=== PATIENT | female | born 1995 | race American Indian/Alaskan Native ===

== ENCOUNTER 2017-10-15 06:09 | Emergency (ER) | payer SELFPAY ==
--- NOTE | 2017-10-15 06:11 | EDM.PDOC ---
ED HPI GENERAL MEDICAL PROBLEM - General Stated Complaint: RIGHT EAR PAIN Time Seen by Provider: 10/15/17 06:25 Source of Information: Reports: Patient History Limitations: Reports: No Limitations - History of Present Illness INITIAL COMMENTS - FREE TEXT/NARRATIVE: HISTORY AND PHYSICAL: History of present illness: 22-year-old female presenting emergency department with chief complaint of right ear pain 2 hours. Patient states that she woke up this morning and was having some severe right ear pain approximately 2 hours ago. She denies any loss of hearing or trauma to that ear. She does have a history of ear infections but only as a child none as an adult. She denies any recent illness, nausea, vomiting, diarrhea, sore throat, or dental cavities. Otherwise she is feeling fine. She has not had fever. She currently denies any chest pain, palpitations, shortness breath, syncopal episodes, or focal neurologic deficits. On exam left external canal is clear and tympanic membrane shows no erythema or bulging. Right external canal is erythema most and patient has pain on pulling of tragus. Review of systems: As per history of present illness and below otherwise all systems reviewed and negative. Past medical history: As per history of present illness and as reviewed below otherwise noncontributory. Surgical history: As per history of present illness and as reviewed below otherwise noncontributory. Social history: No reported history of drug or alcohol abuse. Family history: As per history of present illness and as reviewed below otherwise noncontributory. Physical exam: HEENT: See H&P for your exam Atraumatic, normocephalic, pupils reactive, negative for conjunctival pallor or scleral icterus, mucous membranes moist, throat clear, neck supple, nontender, trachea midline. Lungs: Clear to auscultation, breath sounds equal bilaterally, chest nontender. Heart: S1S2, regular, negative for clicks, rubs, or JVD. Abdomen: Soft, nondistended, nontender. Negative for masses or hepatosplenomegaly. Negative for costovertebral tenderness. Pelvis: Stable nontender. Genitourinary: Deferred. Rectal: Deferred. Extremities: Atraumatic, negative for cords or calf pain. Neurovascular unremarkable. Neuro: Awake, alert, oriented. Cranial nerves II through XII unremarkable. Cerebellum unremarkable. Motor and sensory unremarkable throughout. Exam nonfocal. Diagnostics: [] Therapeutics: [] Impression: Otitis externa Plan: On examination patient has otitis externa of the right ear. She was given a prescription for Cortisporin otic drops to be used 1-2 drops 4 times a day for 7 days. She was instructed to follow-up with her primary care provider and return to emergency department if she has any new or worsening symptoms. - Related Data Allergies Allergy/AdvReac Type Severity Reaction Status Date / Time No Known Allergies Allergy Verified 10/15/17 06:12 Home Meds: Home Meds . [No Known Home Meds] 10/15/17 [History] ED ROS GENERAL - Review of Systems Review Of Systems: See Below ED EXAM, GENERAL - Physical Exam Exam: See Below Course - Vital Signs Last Recorded V/S: Last Vital Signs Temp 97.8 F 10/15/17 06:09 Pulse 78 10/15/17 06:09 Resp 16 10/15/17 06:09 BP 122/80 10/15/17 06:09 Pulse Ox 97 10/15/17 06:09 Departure - Departure Time of Disposition: 06:34 Disposition: Home, Self-Care 01 Condition: Good Clinical Impression: Otitis externa Qualifiers: Otitis externa type: other infective Chronicity: acute Laterality: right Qualified Code(s): H60.391 - Other infective otitis externa, right ear - Discharge Information Additional Instructions: My general discharge The following information is given to patients seen in the emergency department who are being discharged to home. This information is to outline your options for follow-up care. We provide all patients seen in our emergency department with a follow-up referral. The need for follow-up, as well as the timing and circumstances, are variable depending upon the specifics of your emergency department visit. If you don't have a primary care physician on staff, we will provide you with a referral. We always advise you to contact your personal physician following an emergency department visit to inform them of the circumstance of the visit and for follow-up with them and/or the need for any referrals to a consulting specialist. The emergency department will also refer you to a specialist when appropriate. This referral assures that you have the opportunity for follow-up care with a specialist. All of these measure are taken in an effort to provide you with optimal care, which includes your follow-up. Under all circumstances we always encourage you to contact your private physician who remains a resource for coordinating your care. When calling for follow-up care, please make the office aware that this follow-up is from your recent emergency room visit. If for any reason you are refused follow-up, please contact the [facility] Emergency Department at and asked to speak to the emergency department charge nurse. [facility] [address] [place] [id number] [facility] [address] [place] [id number] [facility] [address] [place] [id number] Use drops in ear 1-24 times a day for 7 days. Follow-up with primary care physician. Numbers have been listed above. Burroughs returns from anything new or worsening symptoms.
== END 2017-10-15 06:40 | disposition home or self-care (01) ==
LOC: MW.ED 06:09
DX: H60.91 Unspecified otitis externa, right ear (principal)
CPT/HCPCS: 99282

== ENCOUNTER 2018-01-09 15:32 | Emergency (ER) | payer SELFPAY ==
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
== END 2018-01-09 16:38 | disposition home or self-care (01) ==
LOC: MW.ED 15:32
DX: R68.84 Jaw pain (principal)
CPT/HCPCS: 99283

== ENCOUNTER 2018-10-25 12:59 | Emergency (ER) | payer SELFPAY ==
[2018-10-25] MEDS ORDERED: Ketorolac 60 MG/2 ML SDV IM ONE (13:25)
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
== END 2018-10-25 14:40 | disposition home or self-care (01) ==
LOC: MW.ED 12:59
DX: M26.602 Left temporomandibular joint disorder, unspecified (principal)
CPT/HCPCS: 70100; 96372; 99284; J1885; J2360

== ENCOUNTER 2018-11-29 18:32 | Emergency (ER) | payer SELFPAY ==
[2018-11-29] MEDS ORDERED: Ondansetron 4 MG Tab.DIS PO ONE (18:40)
--- NOTE | 2018-11-29 18:59 | EDM.PDOC ---
ED HPI GENERAL MEDICAL PROBLEM - General Stated Complaint: FLU Time Seen by Provider: 11/29/18 18:37 - History of Present Illness INITIAL COMMENTS - FREE TEXT/NARRATIVE: HISTORY AND PHYSICAL: History of present illness: Patient's 23-year-old female with no significant past medical history presents with concern of possible food poisoning patient achieved some [place] food last night and had nausea and vomiting since is been no diarrhea no fever chills or other complaint she denies abdominal pain Review of systems: As per history of present illness and below otherwise all systems reviewed and negative. Past medical history: As per history of present illness and as reviewed below otherwise noncontributory. Surgical history: As per history of present illness and as reviewed below otherwise noncontributory. Social history: No reported history of drug or alcohol abuse. Family history: As per history of present illness and as reviewed below otherwise noncontributory. Physical exam: HEENT: Atraumatic, normocephalic, pupils reactive, negative for conjunctival pallor or scleral icterus, mucous membranes moist, throat clear, neck supple, nontender, trachea midline. Lungs: Clear to auscultation, breath sounds equal bilaterally, chest nontender. Heart: S1S2, regular, negative for clicks, rubs, or JVD. Abdomen: Soft, nondistended, nontender. Negative for masses or hepatosplenomegaly. Negative for costovertebral tenderness. Pelvis: Stable nontender. Genitourinary: Deferred. Rectal: Deferred. Extremities: Atraumatic, negative for cords or calf pain. Neurovascular unremarkable. Neuro: Awake, alert, oriented. Cranial nerves II through XII unremarkable. Cerebellum unremarkable. Motor and sensory unremarkable throughout. Exam nonfocal. Diagnostics: CBC CMP lipase hCG Therapeutics: Zofran 4 mg by mouth Impression: #1 vomiting Definitive disposition and diagnosis as appropriate pending reevaluation and review of above. - Related Data Allergies Allergy/AdvReac Type Severity Reaction Status Date / Time No Known Allergies Allergy Verified 11/29/18 18:47 Home Meds: Home Meds . 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 Musculoskeletal History: Reports: None Neurological History: Reports: None Psychiatric History: Reports: None Endocrine/Metabolic History: Reports: None Hematologic History: Reports: None Immunologic History: Reports: None Oncologic (Cancer) History: Reports: None Dermatologic History: Reports: None - Infectious Disease History Infectious Disease History: Reports: None - Past Surgical History Head Surgeries/Procedures: Reports: None Female Surgical History: Reports: None Social & Family History - Family History Family Medical History: Noncontributory - Tobacco Use Smoking Status *Q: Current Every Day Smoker Years of Tobacco use: 1 Packs/Tins Daily: 0.2 - Caffeine Use Caffeine Use: Reports: None - Recreational Drug Use Recreational Drug Use: No ED ROS GENERAL - Review of Systems Review Of Systems: ROS reveals no pertinent complaints other than HPI. ED EXAM, GENERAL - Physical Exam Exam: See Below (See dictation) Course - Vital Signs Last Recorded V/S: Last Vital Signs Temp 36.6 C 11/29/18 18:46 Pulse 94 11/29/18 18:46 Resp 18 11/29/18 18:46 BP 148/85 H 11/29/18 18:46 Pulse Ox 99 11/29/18 18:46 - Orders/Labs/Meds Orders: Active Orders 24 hr Category Date Time Status CBC WITH AUTO DIFF [HEME] Stat Lab 11/29/18 18:40 Ordered COMPREHENSIVE METABOLIC PN,CMP [CHEM] Stat Lab 11/29/18 18:40 Ordered HCG QUALITATIVE,SERUM [CHEM] Stat Lab 11/29/18 18:40 Ordered LIPASE [CHEM] Stat Lab 11/29/18 18:40 Ordered Meds: Medications Discontinued Medications Generic Name Dose Route Start Last Admin Trade Name Tonnyq PRN Reason Stop Dose Admin Ondansetron HCl 4 mg 11/29/18 18:40 Zofran Odt PO 11/29/18 18:41 ONETIME ONE Departure - Departure Time of Disposition: 18:58 Disposition: Home, Self-Care 01 Condition: Good Clinical Impression: Vomiting - Discharge Information Referrals: PCP,Unknown [Primary Care Provider] - Additional Instructions: The following information is given to patients seen in the emergency department who are being discharged to home. This information is to outline your options for follow-up care. We provide all patients seen in our emergency department with a follow-up referral. The need for follow-up, as well as the timing and circumstances, are variable depending upon the specifics of your emergency department visit. If you don't have a primary care physician on staff, we will provide you with a referral. We always advise you to contact your personal physician following an emergency department visit to inform them of the circumstance of the visit and for follow-up with them and/or the need for any referrals to a consulting specialist. The emergency department will also refer you to a specialist when appropriate. This referral assures that you have the opportunity for followup care with a specialist. All of these measure are taken in an effort to provide you with optimal care, which includes your followup. Under all circumstances we always encourage you to contact your private physician who remains a resource for coordinating your care. When calling for followup care, please make the office aware that this follow-up is from your recent emergency room visit. If for any reason you are refused follow-up, please contact the [facility] emergency department at and asked to speak to the emergency department charge nurse. Zofran as prescribed push fluids clear liquids as discussed return as needed as discussed - My Orders Last 24 Hours: My Active Orders 11/29/18 18:40 CBC WITH AUTO DIFF [HEME] Stat COMPREHENSIVE METABOLIC PN,CMP [CHEM] Stat HCG QUALITATIVE,SERUM [CHEM] Stat LIPASE [CHEM] Stat - Assessment/Plan Last 24 Hours: My Active Orders 11/29/18 18:40 CBC WITH AUTO DIFF [HEME] Stat COMPREHENSIVE METABOLIC PN,CMP [CHEM] Stat HCG QUALITATIVE,SERUM [CHEM] Stat LIPASE [CHEM] Stat
[2018-11-29 19:21] LABS: CHLORIDE,CL 106 mmol/L (98-107); SODIUM,NA 141 mmol/L (136-145)
== END 2018-11-29 20:22 | disposition home or self-care (01) ==
LOC: MW.ED 18:32
DX: R11.2 Nausea with vomiting, unspecified (principal)
CPT/HCPCS: 36415; 80053; 83690; 84703; 85025; 99284; A9270; 99283

== ENCOUNTER 2019-02-08 14:40 | Emergency (ER) | payer SELFPAY ==
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
== END 2019-02-08 18:52 | disposition home or self-care (01) ==
LOC: MW.ED 14:40
DX: S70.11XA Contusion of right thigh, initial encounter (principal); F17.200 Nicotine dependence, unspecified, uncomplicated; W55.32XA Struck by other hoof stock, initial encounter
CPT/HCPCS: 73552-26-LT; 73552-RT; 99282; 99283-25

== ENCOUNTER 2019-02-14 06:15 | Emergency (ER) | payer SELFPAY ==
[2019-02-14] MEDS ORDERED: Ketorolac 30 MG/ML SDV IVPUSH ONE (06:36)
[2019-02-14] MEDS ORDERED: Sodium Chloride 0.9% 2.5 ML Syringe FLUSH PRN (06:36)
[2019-02-14] MEDS ORDERED: Pantoprazole 40 MG Vial IVPUSH ONE (06:36)
[2019-02-14] MEDS ORDERED: Sodium Chloride 0.9% 10 ML Syringe FLUSH PRN (06:36)
[2019-02-14] MEDS ORDERED: Ondansetron 4 MG/2 ML SDV IVPUSH ONE (06:36)
[2019-02-14] MEDS ORDERED: Sodium Chloride 0.9% 1,000 ML IV ONE (06:36)
[2019-02-14] MEDS ORDERED: Sodium Chloride 0.9% 20 ML ONE (06:44)
--- NOTE | 2019-02-14 06:48 | EDM.PDOC ---
<Starla Bishop - Last Filed: 02/14/19 06:43> ED HPI GENERAL MEDICAL PROBLEM - General Chief Complaint: Abdominal Pain Stated Complaint: ABD PAIN Time Seen by Provider: 02/14/19 06:37 - History of Present Illness INITIAL COMMENTS - FREE TEXT/NARRATIVE: HISTORY AND PHYSICAL: History of present illness: The patient is a 23-year-old female with GI or abdominal surgical history who presents with onset of epigastric and lower chest pain that started about 3:30 this morning. Patient said she had a normal day yesterday and ate pizza at 6 PM and then had some liquids before bed and was sleeping comfortably when she woke up and felt this epigastric discomfort. She describes it as a deep burning pain that radiates to both upper quadrants and then around to her back but she has no specific flank pain or urinary complaints. She vomited 7 times none of which was black or bloody and she's had no diarrhea and says she had a normal bowel movement yesterday. She's had no fever chills upper respiratory tract symptoms no shortness of breath and no specific chest wall pain and points to her lower sternum and epigastric region as the site of the discomfort. It does not shoot to her back. The patient says she has no medical history and no cardiac or pulmonary issues and did not take any meds [id number] to help with this discomfort. She denies any history of food intolerance. Review of systems: As per history of present illness and below otherwise all systems reviewed and negative. Past medical history: As per history of present illness and as reviewed below otherwise noncontributory. Surgical history: As per history of present illness and as reviewed below otherwise noncontributory. Social history: No reported history of drug or alcohol abuse. Family history: As per history of present illness and as reviewed below otherwise noncontributory. Physical exam: General: Well-developed well-nourished very overweight female who is nontoxic and vital signs are noted by me. Moves easily in the ED without much distress. HEENT: Atraumatic, normocephalic, pupils reactive, negative for conjunctival pallor or scleral icterus, mucous membranes moist, throat clear, neck supple, nontender, trachea midline. Lungs: Clear to auscultation, breath sounds equal bilaterally, chest nontender. Heart: S1S2, regular rate and rhythm no overt murmurs Abdomen: Soft, nondistended, bowel sounds are hypoactive and there is no tympany on percussion. There is moderate tenderness in the epigastric region and just to the left of the midline but no specific right upper quadrant tenderness and no lower abdominal tenderness. There is no rebound or guarding. Negative for masses or hepatosplenomegaly. Negative for costovertebral tenderness. Pelvis: Stable nontender. Genitourinary: Deferred. Rectal: Deferred. Extremities: Atraumatic, negative for cords or calf pain. Neurovascular unremarkable. Neuro: Awake, alert, oriented. Cranial nerves II through XII unremarkable. Cerebellum unremarkable. Motor and sensory unremarkable throughout. Exam nonfocal. Diagnostics: EKG CBC CMP amylase lipase UA UCG Therapeutics: IV fluids Protonix Toradol Zofran 0650: Case is endorsed to Dr. Moe to follow-up the diagnostics as ordered and to reevaluate the patient and to determine if she needs imaging pending the testing results and her response to the interventions. Impression: Epigastric abdominal pain with vomiting Definitive disposition and diagnosis as appropriate pending reevaluation and review of above. epigastric area Pain Score (Numeric/FACES): 8 - Related Data Allergies Allergy/AdvReac Type Severity Reaction Status Date / Time No Known Allergies Allergy Verified 02/14/19 06:26 Home Meds: Home Meds . [No Known Home Meds] 11/29/18 [History] Past Medical History - Past Health History Medical/Surgical History: Denies Medical/Surgical History HEENT History: Reports: None Cardiovascular History: Reports: None Respiratory History: Reports: None Gastrointestinal History: Reports: None Genitourinary History: Reports: None INCOMING FREIGHT CLERK History: Reports: None Musculoskeletal History: Reports: None Neurological History: Reports: None Psychiatric History: Reports: None Endocrine/Metabolic History: Reports: None Insulin Pump Model and Ecotherapist: None Hematologic History: Reports: None Immunologic History: Reports: None Oncologic (Cancer) History: Reports: None Dermatologic History: Reports: None - Infectious Disease History Infectious Disease History: Reports: None - Past Surgical History Head Surgeries/Procedures: Reports: None Female Surgical History: Reports: None Social & Family History - Family History Family Medical History: Noncontributory - Tobacco Use Smoking Status *Q: Never Smoker - Caffeine Use Caffeine Use: Reports: Coffee - Recreational Drug Use Recreational Drug Use: No ED ROS GENERAL - Review of Systems Review Of Systems: ROS reveals no pertinent complaints other than HPI. ED EXAM, GENERAL - Physical Exam Exam: See Below (See dictation) Course - Vital Signs Last Recorded V/S: Last Vital Signs Temp 97.5 F 02/14/19 06:26 Pulse 92 02/14/19 06:26 Resp 18 02/14/19 06:26 BP 135/74 02/14/19 06:26 Pulse Ox 99 02/14/19 06:26 - Orders/Labs/Meds Orders: Active Orders 24 hr Category Date Time Status EKG Documentation Completion [RC] STAT Care 02/14/19 06:35 Active Sodium Chloride 0.9% [Saline Flush] Med 02/14/19 06:36 Active 10 ml FLUSH ASDIRECTED PRN Sodium Chloride 0.9% [Saline Flush] Med 02/14/19 06:36 Active 2.5 ml FLUSH ASDIRECTED PRN Saline Lock Insert [OM.PC] Stat Oth 02/14/19 06:35 Ordered Medication Orders Sodium Chloride (Saline Flush) 10 ml FLUSH ASDIRECTED PRN PRN Reason: Keep Vein Open Sodium Chloride (Saline Flush) 2.5 ml FLUSH ASDIRECTED PRN PRN Reason: Keep Vein Open Labs: Laboratory Tests 02/14/19 02/14/19 02/14/19 Range/Units 06:25 06:25 06:40 WBC 10.38 (4.0-11.0) K/uL RBC 4.28 L (4.30-5.90) M/uL Hgb 13.9 (12.0-16.0) g/dL Hct 40.9 (36.0-46.0) % MCV 95.6 (80.0-98.0) fL MCH 32.5 H (27.0-32.0) pg MCHC 34.0 (31.0-37.0) g/dL RDW Std Deviation 41.6 (28.0-62.0) fl RDW Coeff of Salma 12 (11.0-15.0) % Plt Count 255 (150-400) K/uL MPV 10.30 (7.40-12.00) fL Neut % (Auto) 59.3 (48.0-80.0) % Lymph % (Auto) 30.0 (16.0-40.0) % [place] % (Auto) 9.0 (0.0-15.0) % Eos % (Auto) 1.4 (0.0-7.0) % Baso % (Auto) 0.3 (0.0-1.5) % Neut # (Auto) 6.2 H (1.4-5.7) K/uL Lymph # (Auto) 3.1 H (0.6-2.4) K/uL [place] # (Auto) 0.9 H (0.0-0.8) K/uL Eos # (Auto) 0.2 (0.0-0.7) K/uL Baso # (Auto) 0.0 (0.0-0.1) K/uL Nucleated RBC % 0.0 /100WBC Nucleated RBCs # 0 K/uL Sodium (136-145) mmol/L Potassium (3.5-5.1) mmol/L Chloride (98-107) mmol/L Carbon Dioxide (21.0-32.0) mmol/L BUN (7.0-18.0) mg/dL Creatinine (0.6-1.0) mg/dL Est Cr Clr Drug Dosing mL/min Estimated GFR (MDRD) ml/min Glucose (74-106) mg/dL Calcium (8.5-10.1) mg/dL Total Bilirubin (0.2-1.0) mg/dL AST (15-37) IU/L ALT (14-63) IU/L Alkaline Phosphatase (46-116) U/L Total Protein (6.4-8.2) g/dL Albumin (3.4-5.0) g/dL Globulin (2.6-4.0) g/dL Albumin/Globulin Ratio (0.9-1.6) Amylase (25-115) U/L Lipase (73-393) U/L Urine Color YELLOW Urine Appearance SLT CLOUDY Urine pH 6.5 (5.0-8.0) Ur Specific [place] 1.025 (1.001-1.035) Urine Protein NEGATIVE (NEGATIVE) mg/dL Urine Glucose (UA) NEGATIVE (NEGATIVE) mg/dL Urine Ketones TRACE H (NEGATIVE) mg/dL Urine Occult Blood NEGATIVE (NEGATIVE) Urine Nitrite NEGATIVE (NEGATIVE) Urine Bilirubin NEGATIVE (NEGATIVE) Urine Urobilinogen 0.2 (<2.0) EU/dL Ur Leukocyte Esterase NEGATIVE (NEGATIVE) Urine HCG, Qual NEGATIVE (NEGATIVE) 02/14/19 Range/Units 06:40 WBC (4.0-11.0) K/uL RBC (4.30-5.90) M/uL Hgb (12.0-16.0) g/dL Hct (36.0-46.0) % MCV (80.0-98.0) fL MCH (27.0-32.0) pg MCHC (31.0-37.0) g/dL RDW Std Deviation (28.0-62.0) fl RDW Coeff of Salma (11.0-15.0) % Plt Count (150-400) K/uL MPV (7.40-12.00) fL Neut % (Auto) (48.0-80.0) % Lymph % (Auto) (16.0-40.0) % [place] % (Auto) (0.0-15.0) % Eos % (Auto) (0.0-7.0) % Baso % (Auto) (0.0-1.5) % Neut # (Auto) (1.4-5.7) K/uL Lymph # (Auto) (0.6-2.4) K/uL [place] # (Auto) (0.0-0.8) K/uL Eos # (Auto) (0.0-0.7) K/uL Baso # (Auto) (0.0-0.1) K/uL Nucleated RBC % /100WBC Nucleated RBCs # K/uL Sodium 142 (136-145) mmol/L Potassium 4.1 (3.5-5.1) mmol/L Chloride 106 (98-107) mmol/L Carbon Dioxide 25.2 (21.0-32.0) mmol/L BUN 13 (7.0-18.0) mg/dL Creatinine 0.9 (0.6-1.0) mg/dL Est Cr Clr Drug Dosing 95.35 mL/min Estimated GFR (MDRD) > 60.0 ml/min Glucose 107 H (74-106) mg/dL Calcium 8.8 (8.5-10.1) mg/dL Total Bilirubin 0.3 (0.2-1.0) mg/dL AST 21 (15-37) IU/L ALT 45 (14-63) IU/L Alkaline Phosphatase 96 (46-116) U/L Total Protein 7.5 (6.4-8.2) g/dL Albumin 3.7 (3.4-5.0) g/dL Globulin 3.8 (2.6-4.0) g/dL Albumin/Globulin Ratio 1.0 (0.9-1.6) Amylase 34 (25-115) U/L Lipase 124 (73-393) U/L Urine Color Urine Appearance Urine pH (5.0-8.0) Ur Specific [place] (1.001-1.035) Urine Protein (NEGATIVE) mg/dL Urine Glucose (UA) (NEGATIVE) mg/dL Urine Ketones (NEGATIVE) mg/dL Urine Occult Blood (NEGATIVE) Urine Nitrite (NEGATIVE) Urine Bilirubin (NEGATIVE) Urine Urobilinogen (<2.0) EU/dL Ur Leukocyte Esterase (NEGATIVE) Urine HCG, Qual (NEGATIVE) Meds: Medications Generic Name Dose Route Start Last Admin Trade Name Homero PRN Reason Stop Dose Admin Sodium Chloride 10 ml 02/14/19 06:36 Saline Flush FLUSH ASDIRECTED PRN Keep Vein Open Sodium Chloride 2.5 ml 02/14/19 06:36 Saline Flush FLUSH ASDIRECTED PRN Keep Vein Open Discontinued Medications Generic Name Dose Route Start Last Admin Trade Name Homero PRN Reason Stop Dose Admin Sodium Chloride 1,000 mls @ 999 mls/hr 02/14/19 06:36 02/14/19 06:50 Normal Saline IV 02/14/19 07:36 999 mls/hr STAT ONE Administration Sodium Chloride Confirm 02/14/19 06:44 02/14/19 06:48 Normal Saline Administered 02/14/19 06:45 20 mls/hr Dose Administration 20 mls @ as directed .ROUTE .STK-MED ONE Ketorolac Tromethamine 30 mg 02/14/19 06:36 02/14/19 06:49 Toradol IVPUSH 02/14/19 06:37 30 mg ONETIME ONE Administration Ondansetron HCl 4 mg 02/14/19 06:36 02/14/19 06:49 Zofran IVPUSH 02/14/19 06:37 4 mg ONETIME ONE Administration Pantoprazole Sodium 80 mg 02/14/19 06:36 02/14/19 06:48 Protonix Iv IVPUSH 02/14/19 06:37 80 mg .BOLUS ONE Administration Departure - Departure Disposition: Home, Self-Care 01 Condition: Good Clinical Impression: Abdominal pain Qualifiers: Abdominal location: epigastric Qualified Code(s): R10.13 - Epigastric pain Vomiting Qualifiers: Vomiting type: unspecified Vomiting Intractability: unspecified Nausea presence : with nausea Qualified Code(s): R11.2 - Nausea with vomiting, unspecified - Discharge Information Instructions: Abdominal Pain, Adult, [id number] Referrals: PCP,None [Primary Care Provider] - Forms: ED Department Discharge Additional Instructions: The following information is given to patients seen in the emergency department who are being discharged to home. This information is to outline your options for follow-up care. We provide all patients seen in our emergency department with a follow-up referral. The need for follow-up, as well as the timing and circumstances, are variable depending upon the specifics of your emergency department visit. If you don't have a primary care physician on staff, we will provide you with a referral. We always advise you to contact your personal physician following an emergency department visit to inform them of the circumstance of the visit and for follow-up with them and/or the need for any referrals to a consulting specialist. The emergency department will also refer you to a specialist when appropriate. This referral assures that you have the opportunity for follow-up care with a specialist. All of these measure are taken in an effort to provide you with optimal care, which includes your follow-up. Under all circumstances we always encourage you to contact your private physician who remains a resource for coordinating your care. When calling for follow-up care, please make the office aware that this follow-up is from your recent emergency room visit. If for any reason you are refused follow-up, please contact the [facility] Emergency Department at and asked to speak to the emergency department charge nurse. Take Pridariosec as directed, follow up with your primary care physician, return to ER if symptoms worsen or change. [facility] [address] [place] [id number] <Lexi Moe - Last Filed: 02/14/19 07:39> ED HPI GENERAL MEDICAL PROBLEM - History of Present Illness INITIAL COMMENTS - FREE TEXT/NARRATIVE: Patient was signed out to me by Dr. Bishop to check labs and reassess the patient. Patient's lab work was all normal had a benign abdominal exam she is being discharged I recommended taking Prilosec twice a day for 2 weeks and follow-up with her primary care doctor. She is to return if any bloody emesis or black stools, worsening pain or any other concerning symptoms occur. Departure - Departure Time of Disposition: 07:39 - Discharge Information *PRESCRIPTION DRUG MONITORING PROGRAM REVIEWED*: No *COPY OF PRESCRIPTION DRUG MONITORING REPORT IN PATIENT MAYDA: No
[2019-02-14 07:03] LABS: BLOOD UREA NITROGEN,BUN 13 mg/dL (7.0-18.0); CARBON DIOXIDE,CO2 25.2 mmol/L (21.0-32.0); CHLORIDE,CL 106 mmol/L (98-107); GLUCOSE RANDOM 107 mg/dL (74-106); LIPASE 124 U/L (73-393); POTASSIUM,K 4.1 mmol/L (3.5-5.1); SODIUM,NA 142 mmol/L (136-145)
== END 2019-02-14 08:30 | disposition home or self-care (01) ==
LOC: MW.ED 06:15
DX: R10.13 Epigastric pain (principal); R11.2 Nausea with vomiting, unspecified; R07.9 Chest pain, unspecified
CPT/HCPCS: 36415; 80053; 81003; 81025; 82150; 83690; 85025; 93005; 96361; 96374; 96375; 99284; C9113; J1885; J2405; J7040

== ENCOUNTER 2019-03-01 03:39 | Emergency (ER) | payer SELFPAY ==
[2019-03-01] MEDS ORDERED: Ondansetron 4 MG/2 ML SDV IVPUSH ONE (03:59)
[2019-03-01] MEDS ORDERED: Sodium Chloride 0.9% 1,000 ML IV ONE (03:59)
[2019-03-01] MEDS ORDERED: Pantoprazole 40 MG Vial IV ONE (04:24)
[2019-03-01] MEDS ORDERED: Sodium Chloride 0.9% 20 ML SDV FLUSH ONE (04:26)
--- NOTE | 2019-03-01 04:27 | EDM.PDOC ---
ED HPI GENERAL MEDICAL PROBLEM - General Chief Complaint: Gastrointestinal Problem Stated Complaint: VOMITING Time Seen by Provider: 03/01/19 04:22 - History of Present Illness INITIAL COMMENTS - FREE TEXT/NARRATIVE: HISTORY AND PHYSICAL: History of present illness: Patient's 23-year-old female with a history of gastroesophageal reflux disease was seen in the ER several weeks prior for same and return with upper abdominal pain she states she's had vomiting and diarrhea also she denies fever chills Review of systems: As per history of present illness and below otherwise all systems reviewed and negative. Past medical history: As per history of present illness and as reviewed below otherwise noncontributory. Surgical history: As per history of present illness and as reviewed below otherwise noncontributory. Social history: No reported history of drug or alcohol abuse. Family history: As per history of present illness and as reviewed below otherwise noncontributory. Physical exam: HEENT: Atraumatic, normocephalic, pupils reactive, negative for conjunctival pallor or scleral icterus, mucous membranes moist, throat clear, neck supple, nontender, trachea midline. Lungs: Clear to auscultation, breath sounds equal bilaterally, chest nontender. Heart: S1S2, regular, negative for clicks, rubs, or JVD. Abdomen: Soft, nondistended, nontender. Negative for masses or hepatosplenomegaly. Negative for costovertebral tenderness. Pelvis: Stable nontender. Genitourinary: Deferred. Rectal: Deferred. Extremities: Atraumatic, negative for cords or calf pain. Neurovascular unremarkable. Neuro: Awake, alert, oriented. Cranial nerves II through XII unremarkable. Cerebellum unremarkable. Motor and sensory unremarkable throughout. Exam nonfocal. Diagnostics: CBC CMP and lipase UA hCG Therapeutics: Saline 1 L bolus Impression: #1 history of gastroesophageal reflux disease #2 gastroenteritis Definitive disposition and diagnosis as appropriate pending reevaluation and review of above. abdomen Pain Score (Numeric/FACES): 10 - Related Data Allergies Allergy/AdvReac Type Severity Reaction Status Date / Time No Known Allergies Allergy Verified 03/01/19 03:56 Home Meds: Home Meds . [No Known Home Meds] 11/29/18 [History] Past Medical History - Past Health History Medical/Surgical History: Denies Medical/Surgical History HEENT History: Reports: None Cardiovascular History: Reports: None Respiratory History: Reports: None Gastrointestinal History: Reports: GERD Genitourinary History: Reports: None RETAIL AGENT History: Reports: None Musculoskeletal History: Reports: None Neurological History: Reports: None Psychiatric History: Reports: None Endocrine/Metabolic History: Reports: None Insulin Pump Model and Web Consultant: None Hematologic History: Reports: None Immunologic History: Reports: None Oncologic (Cancer) History: Reports: None Dermatologic History: Reports: None - Infectious Disease History Infectious Disease History: Reports: None - Past Surgical History Head Surgeries/Procedures: Reports: None GI Surgical History: Reports: None Female Surgical History: Reports: None Social & Family History - Family History Family Medical History: Noncontributory - Tobacco Use Smoking Status *Q: Never Smoker Second Hand Smoke Exposure: No - Caffeine Use Caffeine Use: Reports: Coffee - Recreational Drug Use Recreational Drug Use: No ED ROS GENERAL - Review of Systems Review Of Systems: ROS reveals no pertinent complaints other than HPI. ED EXAM, GENERAL - Physical Exam Exam: See Below (dictation) Course - Vital Signs Last Recorded V/S: Last Vital Signs Temp 35.5 C 03/01/19 03:42 Pulse 108 H 03/01/19 03:42 Resp 19 03/01/19 03:42 BP 191/130 H 03/01/19 03:42 Pulse Ox 100 03/01/19 03:42 - Orders/Labs/Meds Orders: Active Orders 24 hr Category Date Time Status Abdomen Series w Chest 1V [CR] Stat Exams 03/01/19 03:59 Ordered COMPREHENSIVE METABOLIC PN,CMP [CHEM] Stat Lab 03/01/19 04:04 Received LIPASE [CHEM] Stat Lab 03/01/19 04:04 Received Sodium Chloride 0.9% [Normal Saline] 1,000 ml Med 03/01/19 03:59 Active IV .Bolus Saline Lock Insert [OM.PC] Stat Oth 03/01/19 03:59 Ordered Medication Orders Sodium Chloride (Normal Saline) 1,000 mls @ 999 mls/hr IV .Bolus ONE Stop: 03/01/19 04:59 Last Admin: 03/01/19 04:10 Dose: 999 mls/hr Labs: Laboratory Tests 03/01/19 03/01/19 03/01/19 Range/Units 04:00 04:00 04:04 WBC 12.89 H (4.0-11.0) K/uL RBC 4.28 L (4.30-5.90) M/uL Hgb 14.2 (12.0-16.0) g/dL Hct 41.2 (36.0-46.0) % MCV 96.3 (80.0-98.0) fL MCH 33.2 H (27.0-32.0) pg MCHC 34.5 (31.0-37.0) g/dL RDW Std Deviation 41.9 (28.0-62.0) fl RDW Coeff of Salma 12 (11.0-15.0) % Plt Count 276 (150-400) K/uL MPV 10.00 (7.40-12.00) fL Nucleated RBC % 0.0 /100WBC Nucleated RBCs # 0 K/uL Urine Color YELLOW Urine Appearance CLEAR Urine pH 6.5 (5.0-8.0) Ur Specific [place] >= 1.030 (1.001-1.035) Urine Protein NEGATIVE (NEGATIVE) mg/dL Urine Glucose (UA) NEGATIVE (NEGATIVE) mg/dL Urine Ketones TRACE H (NEGATIVE) mg/dL Urine Occult Blood NEGATIVE (NEGATIVE) Urine Nitrite NEGATIVE (NEGATIVE) Urine Bilirubin NEGATIVE (NEGATIVE) Urine Urobilinogen 0.2 (<2.0) EU/dL Ur Leukocyte Esterase NEGATIVE (NEGATIVE) Urine HCG, Qual NEGATIVE (NEGATIVE) Meds: Medications Generic Name Dose Route Start Last Admin Trade Name Freq PRN Reason Stop Dose Admin Sodium Chloride 1,000 mls @ 999 mls/hr 03/01/19 03:59 03/01/19 04:10 Normal Saline IV 03/01/19 04:59 999 mls/hr .Bolus ONE Administration Discontinued Medications Generic Name Dose Route Start Last Admin Trade Name Freq PRN Reason Stop Dose Admin Ondansetron HCl 4 mg 03/01/19 03:59 03/01/19 04:10 Zofran IVPUSH 03/01/19 04:00 4 mg ONETIME ONE Administration Departure - Departure Time of Disposition: 04:24 Disposition: Home, Self-Care 01 Condition: Good Clinical Impression: Gastroenteritis, History of gastroesophageal reflux (GERD) - Discharge Information Referrals: PCP,None [Primary Care Provider] - Additional Instructions: The following information is given to patients seen in the emergency department who are being discharged to home. This information is to outline your options for follow-up care. We provide all patients seen in our emergency department with a follow-up referral. The need for follow-up, as well as the timing and circumstances, are variable depending upon the specifics of your emergency department visit. If you don't have a primary care physician on staff, we will provide you with a referral. We always advise you to contact your personal physician following an emergency department visit to inform them of the circumstance of the visit and for follow-up with them and/or the need for any referrals to a consulting specialist. The emergency department will also refer you to a specialist when appropriate. This referral assures that you have the opportunity for followup care with a specialist. All of these measure are taken in an effort to provide you with optimal care, which includes your followup. Under all circumstances we always encourage you to contact your private physician who remains a resource for coordinating your care. When calling for followup care, please make the office aware that this follow-up is from your recent emergency room visit. If for any reason you are refused follow-up, please contact the [facility] emergency department at and asked to speak to the emergency department charge nurse. [facility] - General Surgery Professional Building [address] [place] [address], [address] [place] [address] [facility] [address] [place] [id number] Zofran as prescribed continue Protonix follow-up primary care and Gen. surgery as discussed return as needed as discussed - My Orders Last 24 Hours: My Active Orders 03/01/19 03:59 Abdomen Series w Chest 1V [CR] Stat Sodium Chloride 0.9% [Normal Saline] 1,000 ml IV .Bolus Saline Lock Insert [OM.PC] Stat 03/01/19 04:04 COMPREHENSIVE METABOLIC PN,CMP [CHEM] Stat LIPASE [CHEM] Stat - Assessment/Plan Last 24 Hours: My Active Orders 03/01/19 03:59 Abdomen Series w Chest 1V [CR] Stat Sodium Chloride 0.9% [Normal Saline] 1,000 ml IV .Bolus Saline Lock Insert [OM.PC] Stat 03/01/19 04:04 COMPREHENSIVE METABOLIC PN,CMP [CHEM] Stat LIPASE [CHEM] Stat
[2019-03-01 04:29] LABS: BLOOD UREA NITROGEN,BUN 13 mg/dL (7.0-18.0); CARBON DIOXIDE,CO2 27.6 mmol/L (21.0-32.0); CHLORIDE,CL 104 mmol/L (98-107); GLUCOSE RANDOM 110 mg/dL (74-106); LIPASE 142 U/L (73-393); POTASSIUM,K 3.4 mmol/L (3.5-5.1); SODIUM,NA 141 mmol/L (136-145)
--- NOTE | 2019-03-01 06:17 | CR ---
INDICATION: Abdominal pain TECHNIQUE: Chest and Abdominal radiograph 5 views COMPARISON: None FINDINGS: CHEST: Moderate degradation of image quality noted due to body habitus. Mediastinum: The mediastinum is normal in appearance. The heart silhouette is normal in size and morphology. Lung: Both lungs are unremarkable in appearance. No sign of pleural effusion seen. No pneumothorax is identified. ABDOMEN: Bowel: The supine gas pattern of the transverse colon is suggestive of thumbprinting and fold thickening. Soft tissue: No evidence of pneumoperitoneum present. No suspicious calcifications noted. Bone: Unremarkable for age. IMPRESSION: 1. The supine gas pattern of the transverse colon is suggestive of thumbprinting and fold thickening. Further evaluation with CT is recommended. Dictated by Jason Patricio MD @ 03/01/2019 6:15:42 AM Dictated by: Jason Patricio MD @ 03/01/2019 06:15:44 (Electronically Signed)
[2019-03-01] MEDS ORDERED: Iopamidol 755 Mg/ML 100 ML Bottle IVPUSH ONE (06:27)
--- NOTE | 2019-03-01 07:36 | CT ---
INDICATION: Abdominal pain. Abnormal x-ray to date. TECHNIQUE: Contrast and CT abdomen pelvis. 100 mL [id number]. Coronal and sagittal re-formatted images obtained. COMPARISON: X-rays 03/01/2019. Findings: Heart size is normal. No pericardial or pleural effusion. Minimal ground-glass atelectasis. Spleen pancreas adrenal glands. Liver is unremarkable. There may be some minimal gallbladder wall thickening or fluid. Normal caliber abdominal aorta. Symmetric enhancement of both kidneys without hydronephrosis. Normal appendix. The colon is incompletely distended however there is no obvious bowel wall thickening or inflammatory change seen. No obstruction. Urinary bladder is unremarkable. Bilateral ovarian cysts measuring up to 3.6 cm on the right. No suspicious bony lesions. Impression : 1. Colon is incompletely distended but no obvious bowel wall thickening or inflammatory change. No obstruction. 2. Possible mild gallbladder wall thickening or fluid. This could be correlated clinically. 3. Bilateral ovarian cysts measuring up to 3.6 cm on the right. Please note that all CT scans at this facility use dose modulation, iterative reconstruction, and/or weight-based dosing when appropriate to reduce radiation dose to as low as reasonably achievable. Dictated by Gaby Crawford MD @ Mar 01 2019 7:35AM Signed by Dr. Gaby Crawford @ Mar 01 2019 7:35AM
== END 2019-03-01 07:54 | disposition home or self-care (01) ==
LOC: MW.ED 03:39
DX: K52.9 Noninfective gastroenteritis and colitis, unspecified (principal); Z87.19 Personal history of other diseases of the digestive system
CPT/HCPCS: 36415; 74022; 74177; 80053; 81003; 81025; 83690; 85027; 96361; 96374; 96375; 99284; C9113; J2405; J7040; Q9967

== ENCOUNTER 2019-09-07 15:45 | Emergency (ER) | payer SELFPAY ==
[2019-09-07] MEDS ORDERED: Carbamide Peroxide 6.5% Otic Soln 15 ML Bottle EARRT ONE (15:55)
--- NOTE | 2019-09-07 16:10 | EDM.PDOC ---
ED HPI GENERAL MEDICAL PROBLEM - General Chief Complaint: ENT Problem Stated Complaint: PAIN AND PRESSURE IN R EAR Time Seen by Provider: 09/07/19 15:47 Source of Information: Reports: Patient History Limitations: Reports: No Limitations - History of Present Illness INITIAL COMMENTS - FREE TEXT/NARRATIVE: HISTORY AND PHYSICAL: History of present illness: Patient is a 23-year-old female who presents to the emergency room with complaints of right ear pain. Last evening she was cleaning her ears with a Q- tip and believes she shoved wax in her ear canal. Since then she has been having pain and muffled hearing. She has not had any drainage from the ear. Patient denies any systemic complaints. Review of systems: As per history of present illness and below otherwise all systems reviewed and negative. Past medical history: As per history of present illness and as reviewed below otherwise noncontributory. Surgical history: As per history of present illness and as reviewed below otherwise noncontributory. Social history: See social history for further information Family history: As per history of present illness and as reviewed below otherwise noncontributory. Physical exam: General: Well-developed and well-nourished 23-year-old female. Alert and oriented. Nontoxic-appearing and in no acute distress. HEENT: Atraumatic, normocephalic, pupils equal and reactive bilaterally, negative for conjunctival pallor or scleral icterus, mucous membranes moist, left TMs normal, TM is unable to be visualized due to cerumen impaction, throat clear, neck supple, nontender, trachea midline. No drooling or trismus noted. No meningeal signs. No hot potato voice noted. Lungs: Clear to auscultation, breath sounds equal bilaterally, chest nontender. Heart: S1S2, regular rate and rhythm without overt murmur Abdomen: Soft, nondistended, nontender. Skin: Intact, warm, dry. No lesions or rashes noted. Extremities: Atraumatic, moves all extremities per self without difficulty or deficits, negative for cords or calf pain. Neurovascular unremarkable. Neuro: Awake, alert, oriented. Cranial nerves II through XII unremarkable. Cerebellum unremarkable. Motor and sensory unremarkable throughout. Exam nonfocal. Notes: Debrox was used and sat for 15 minutes, was able to gently irrigate the ear for cerumen removal. She does have some redness behind the TM. Will give antibiotics. We discussed follow-up with ENT. Supportive care measures were reviewed and discussed. Voices understanding and is agreeable to plan of care. Denies any further questions or concerns at this time. Diagnostics: None Therapeutics: Debrox Prescription: Augmentin Impression: Right otitis media Cerumen impaction Plan: 1. Debrox 5-10 drops in the right ear twice daily; MAX of 4 x daily. To soften the ear wax. 2. Take the medication as prescribed. 3. Follow up with your primary care provider or ENT as discussed. Return to the ED as needed as discussed. Definitive disposition and diagnosis as appropriate pending reevaluation and review of above. 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: 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 Musculoskeletal History: Reports: None Neurological History: Reports: None Psychiatric History: Reports: None Endocrine/Metabolic History: Reports: None Insulin Pump Model and Warehouse Packaging Supervisor: None Hematologic History: Reports: None Immunologic History: Reports: None Oncologic (Cancer) History: Reports: None Dermatologic History: Reports: None - Infectious Disease History Infectious Disease History: Reports: None - Past Surgical History Head Surgeries/Procedures: Reports: None GI Surgical History: Reports: None Female Surgical History: Reports: None Social & Family History - Family History Family Medical History: Noncontributory - Caffeine Use Caffeine Use: Reports: Coffee ED ROS ENT - Review of Systems Review Of Systems: Comprehensive ROS is negative, except as noted in HPI. ED EXAM, ENT - Physical Exam Exam: See Below (See dictation) Course - Vital Signs Last Recorded V/S: Last Vital Signs Temp 97.4 F 09/07/19 15:54 Pulse 83 09/07/19 15:54 Resp 16 09/07/19 15:54 BP 132/80 09/07/19 15:54 Pulse Ox 98 09/07/19 15:54 - Orders/Labs/Meds Orders: Active Orders 24 hr Category Date Time Status Communication Order [RC] STAT Care 09/07/19 16:13 Active Meds: Medications Discontinued Medications Generic Name Dose Route Start Last Admin Trade Name Homero PRN Reason Stop Dose Admin Carbamide Perox/Anhydrous Glycerin 1 ml 09/07/19 15:55 09/07/19 16:23 Debrox 6.5% Otic Soln EARRT 09/07/19 15:56 5 drop ONETIME ONE Administration Departure - Departure Time of Disposition: 16:35 Disposition: Home, Self-Care 01 Clinical Impression: Impacted cerumen of right ear Otitis media Qualifiers: Otitis media type: suppurative Chronicity: acute Laterality: right Recurrence: non-recurrent Spontaneous tympanic membrane rupture: without spontaneous rupture Qualified Code(s): H66.001 - Acute suppurative otitis media without spontaneous rupture of ear drum, right ear - Discharge Information Prescriptions: Amoxicillin/Clavulanate K [Augmentin 875-125 MG] 1 tab PO BID 7 Days #14 tablet Instructions: Otitis Media, Adult, [id number] Referrals: PCP,None [Primary Care Provider] - Forms: ED Department Discharge Additional Instructions: The following information is given to patients seen in the emergency department who are being discharged to home. This information is to outline your options for follow-up care. We provide all patients seen in our emergency department with a follow-up referral. The need for follow-up, as well as the timing and circumstances, are variable depending upon the specifics of your emergency department visit. If you don't have a primary care physician on staff, we will provide you with a referral. We always advise you to contact your personal physician following an emergency department visit to inform them of the circumstance of the visit and for follow-up with them and/or the need for any referrals to a consulting specialist. The emergency department will also refer you to a specialist when appropriate. This referral assures that you have the opportunity for follow-up care with a specialist. All of these measure are taken in an effort to provide you with optimal care, which includes your follow-up. Under all circumstances we always encourage you to contact your private physician who remains a resource for coordinating your care. When calling for follow-up care, please make the office aware that this follow-up is from your recent emergency room visit. If for any reason you are refused follow-up, please contact the [facility] Emergency Department at and asked to speak to the emergency department charge nurse. [facility] [address] [place] [address] [facility] [address] [place] [id number] 1. Debrox 5-10 drops in the right ear twice daily; MAX of 4 x daily. To soften the ear wax. 2. Take the medication as prescribed. 3. Follow up with your primary care provider or ENT as discussed. Return to the ED as needed as discussed. Sepsis Event Note - Focused Exam Vital Signs: Vital Signs Temp Pulse Resp BP Pulse Ox 09/07/19 15:54 97.4 F 83 16 132/80 98 Date Exam was Performed: 09/07/19 Time Exam was Performed: 16:35 - My Orders Last 24 Hours: My Active Orders 09/07/19 16:13 Communication Order [RC] STAT - Assessment/Plan Last 24 Hours: My Active Orders 09/07/19 16:13 Communication Order [RC] STAT
== END 2019-09-07 17:04 | disposition home or self-care (01) ==
LOC: MW.ED 15:45
DX: H61.21 Impacted cerumen, right ear (principal); H66.001 Acute suppurative otitis media without spontaneous rupture of ear drum, right ear; Z79.899 Other long term (current) drug therapy
CPT/HCPCS: 69209; 99282; A9270; 99283

== ENCOUNTER 2020-01-30 11:59 | Emergency (ER) | payer SELFPAY ==
--- NOTE | 2020-01-30 13:06 | EDM.PDOC ---
ED HPI GENERAL MEDICAL PROBLEM - General Chief Complaint: Gastrointestinal Problem Stated Complaint: ANAL ISSUES Time Seen by Provider: 01/30/20 12:06 Source of Information: Reports: Patient History Limitations: Reports: No Limitations - History of Present Illness INITIAL COMMENTS - FREE TEXT/NARRATIVE: HISTORY AND PHYSICAL: History of present illness: Patient is a 24-year-old female who presents to the ED today with concern of a sore rectum that began bleeding yesterday with a bowel movement. Patient states that she has an area on her rectum that is painful with wiping and states that when she wiped last night is had started bleeding. Patient states that she also has a little area of infection on her butt cheek and states that she has had these before and has "popped "them in order to get them to go away. Patient denies any health history or any blood in her stool and states that it is only when she wipes the area that is open next to her rectum. Patient denies any other associated of symptoms. Patient denies fever, chills, chest pain, shortness of breath, or cough. Denies headache, neck stiff ness, change in vision, syncope, or near syncope. Denies nausea, vomiting, abdominal pain, diarrhea, constipation, or dysuria. Has not noted any blood in urine or stool. Patient has been eating and drinking appropriately. Review of systems: As per history of present illness and below otherwise all systems reviewed and negative. Past medical history: As per history of present illness and as reviewed below otherwise noncontributory. Surgical history: As per history of present illness and as reviewed below otherwise noncontributory. Social history: See social history for further information Family history: As per history of present illness and as reviewed below otherwise noncontributory. Physical exam: General: Patient is alert, oriented, and in no acute distress. Patient sitting comfortably on exam table. HEENT: Atraumatic, normocephalic, pupils equal and reactive bilaterally, negative for conjunctival pallor or scleral icterus, mucous membranes moist, TMs normal bilaterally, throat clear, neck supple, nontender, trachea midline. No drooling or trismus noted. No meningeal signs. No hot potato voice noted. Lungs: Clear to auscultation, breath sounds equal bilaterally, chest nontender. Heart: S1S2, regular rate and rhythm without overt murmur Abdomen: Soft, nondistended, nontender. Negative for masses or hepatosplenomegaly. Negative for costovertebral tenderness. Pelvis: Stable nontender. Genitourinary: Deferred. Rectal: Dispensary Attendant at bedside Eran Rivera. Hemoccult negative. There is a posterior anal fissure without bleeding that painful to palpation. There is also a 1cm superficial subcutaneous abscess of the right buttock cheek with mild surrounding edema. Does not track near the rectum or perineum and isolated to the soft tissue of the buttock. Skin: Intact, warm, dry. No lesions or rashes noted. Extremities: Atraumatic, negative for cords or calf pain. Neurovascular unremarkable. Neuro: Awake, alert, oriented. Cranial nerves II through XII unremarkable. Cerebellum unremarkable. Motor and sensory unremarkable throughout. Exam nonfocal. Notes: Discussed importance for establishing care with a primary care provider and for close follow-up. Signs and symptoms that would prompt return to the ED thoroughly discussed with patient. Voices understanding and is agreeable to plan of care. Denies any further questions or concerns at this time. Diagnostics: None Therapeutics: Abscess drainage (see procedure note below) Prescription: Nifedipine rectal topical with topical lidocaine, Bactrim DS Impression: Anal fissure, posterior Subcutaneous abscess, left buttock Plan: 1. Use [id number] fiber supplement such as Metamucil, stool softener such as Dulcolax, and daily sitz bath's for 1 month as discussed. Apply medication to affected area as prescribed. 2. Continue to monitor for signs of improving versus worsening infection. If worsening infection over the next 24 to 48 hours, return to the ED for reevaluation as discussed. Medication as prescribed. 3. You can alternate ibuprofen and Tylenol as directed for pain and discomfort. 4. Follow-up with a primary care provider and establish care with a primary care provider for close follow-up as discussed. Return to the ED as needed and as discussed. Definitive disposition and diagnosis as appropriate pending reevaluation and review of above. Anus Pain Score (Numeric/FACES): 5 - Related Data Allergies Allergy/AdvReac Type Severity Reaction Status Date / Time amoxicillin Allergy Cannot Verified 01/30/20 12:22 Remember Home Meds: Home Meds . [No Known Home Meds] 01/30/20 [History] Past Medical History - Past Health History Medical/Surgical History: Denies Medical/Surgical History HEENT History: Reports: None Cardiovascular History: Reports: None Respiratory History: Reports: None Gastrointestinal History: Reports: GERD Genitourinary History: Reports: None FIRE DISPATCHER History: Reports: None Musculoskeletal History: Reports: None Neurological History: Reports: None Psychiatric History: Reports: None Endocrine/Metabolic History: Reports: None Insulin Pump Model and Cellular Equipment Repairer: None Hematologic History: Reports: None Immunologic History: Reports: None Oncologic (Cancer) History: Reports: None Dermatologic History: Reports: None - Infectious Disease History Infectious Disease History: Reports: None - Past Surgical History Head Surgeries/Procedures: Reports: None GI Surgical History: Reports: None Female Surgical History: Reports: None Social & Family History - Family History Family Medical History: Noncontributory - Tobacco Use Smoking Status *Q: Current Every Day Smoker Years of Tobacco use: 2 Packs/Tins Daily: 0.1 - Caffeine Use Caffeine Use: Reports: Coffee - Recreational Drug Use Recreational Drug Use: No ED ROS GENERAL - Review of Systems Review Of Systems: Comprehensive ROS is negative, except as noted in HPI. ED EXAM, GENERAL - Physical Exam Exam: See Below (see dictation) ED I&D PROCEDURES - I&D Site: right buttock, 1cm small subcutaneous Skin prep: Chlorhexidine (Hibiciens), Providone-Iodine (Betadine) Area Incised With: Needle Drainage: Purulent, Bloody, Small Amount Probed to Break Up Loculations: No Packed With: None Sterile Dressinx4(s) Complications: No Course - Vital Signs Last Recorded V/S: Last Vital Signs Temp 96.8 F L 01/30/20 13:20 Pulse 90 01/30/20 13:20 Resp 16 01/30/20 13:20 BP 125/84 01/30/20 13:20 Pulse Ox 99 01/30/20 13:20 Departure - Departure Time of Disposition: 13:02 Disposition: Home, Self-Care 01 Clinical Impression: Anal fissure Subcutaneous abscess Qualifiers: Site of cutaneous abscess: buttock Qualified Code(s): L02.31 - Cutaneous abscess of buttock - Discharge Information Instructions: Anal Fissure, Adult, [id number], Skin Abscess, [id number] Referrals: PCP,None [Primary Care Provider] - Forms: ED Department Discharge Additional Instructions: The following information is given to patients seen in the emergency department who are being discharged to home. This information is to outline your options for follow-up care. We provide all patients seen in our emergency department with a follow-up referral. The need for follow-up, as well as the timing and circumstances, are variable depending upon the specifics of your emergency department visit. If you don't have a primary care physician on staff, we will provide you with a referral. We always advise you to contact your personal physician following an emergency department visit to inform them of the circumstance of the visit and for follow-up with them and/or the need for any referrals to a consulting specialist. The emergency department will also refer you to a specialist when appropriate. This referral assures that you have the opportunity for follow-up care with a specialist. All of these measure are taken in an effort to provide you with optimal care, which includes your follow-up. Under all circumstances we always encourage you to contact your private physician who remains a resource for coordinating your care. When calling for follow-up care, please make the office aware that this follow-up is from your recent emergency room visit. If for any reason you are refused follow-up, please contact the [facility] Emergency Department at and asked to speak to the emergency department charge nurse. [facility] [address] [place] [address] [id number] [address] [id number] 1. Use [id number] fiber supplement such as Metamucil, stool softener such as Dulcolax, and daily sitz bath's for 1 month as discussed. Apply medication to affected area as prescribed. 2. Continue to monitor for signs of improving versus worsening infection. If worsening infection over the next 24 to 48 hours, return to the ED for reevaluation as discussed. Medication as prescribed. 3. You can alternate ibuprofen and Tylenol as directed for pain and discomfort. 4. Follow-up with a primary care provider and establish care with a primary care provider for close follow-up as discussed. Return to the ED as needed and as discussed. Sepsis Event Note (ED) - Evaluation Sepsis Screening Result: No Definite Risk - Focused Exam Vital Signs: Vital Signs Temp Pulse Resp BP Pulse Ox 01/30/20 13:20 96.8 F L 90 16 125/84 99 01/30/20 12:22 96.9 F 95 17 145/94 H 98
== END 2020-01-30 13:20 | disposition home or self-care (01) ==
LOC: MW.ED 11:59
DX: L02.31 Cutaneous abscess of buttock (principal); K60.2 Anal fissure, unspecified; F17.210 Nicotine dependence, cigarettes, uncomplicated; Z88.1 Allergy status to other antibiotic agents
CPT/HCPCS: 10060; 46050; 99283; 99283-25

== ENCOUNTER 2020-07-17 15:44 | Emergency (ER) | payer SELFPAY ==
--- NOTE | 2020-07-17 16:00 | EDM.PDOC ---
ED HPI GENERAL MEDICAL PROBLEM - General Chief Complaint: Upper Extremity Injury/Pain Stated Complaint: ABD PAIN Time Seen by Provider: 07/17/20 15:59 Source of Information: Reports: Patient History Limitations: Reports: No Limitations - History of Present Illness INITIAL COMMENTS - FREE TEXT/NARRATIVE: HISTORY AND PHYSICAL: History of present illness: Review of systems: As per history of present illness and below otherwise all systems reviewed and negative. Past medical history: As per history of present illness and as reviewed below otherwise noncontributory. Surgical history: As per history of present illness and as reviewed below otherwise noncontributory. Social history: See social history for further information Family history: As per history of present illness and as reviewed below otherwise noncontributory. Physical exam: General: Well developed and well nourished. Alert and orientated x 3. Nontoxic in appearance and in no acute distress. Vital signs are stable and have been reviewed by me. Nursing notes were reviewed. HEENT: Atraumatic, normocephalic, pupils equal and reactive bilaterally, negative for conjunctival pallor or scleral icterus, mucous membranes moist, TMs normal bilaterally, throat clear, neck supple, nontender, trachea midline. No drooling or trismus noted. No meningeal signs. No hot potato voice noted. Lungs: Clear to auscultation bilaterally. No wheezes, rales, or rhonchi. Chest nontender. Normal work of breathing, no accessory muscles used. Heart: S1S2, regular rate and rhythm without overt murmur, gallops, or rubs. No JVD. No peripheral edema Abdomen: Soft, nondistended, nontender. Normoactive bowel sounds. Negative for masses or costovertebral tenderness. Pelvis: Stable nontender. Genitourinary/Rectal: Deferred. Skin: Intact, warm, dry. No lesions or rashes noted. Hematologic: No petechiae or purpra. Mucosa appropriate color and normal nail bed color and refill. Extremities: Atraumatic, moves all extremities per self without difficulty or deficits, negative for cords or calf pain. Neurovascular unremarkable. Neuro: Awake, alert, oriented. Cranial nerves II through XII unremarkable. Cerebellum unremarkable. Motor and sensory unremarkable throughout. Exam nonfocal. Psychiatric: Mood and affect are appropriate. Normal thought process. Answering questions appropriately. Notes: *This patient was seen and evaluated during the 2019 SARS-CoV-2 novel coronavirus pandemic period. Community viral transmission is ongoing at time of this encounter and the emergency department is operating under pandemic response procedures. I have talked with the patient about today's findings, in addition to providing specific details for plan of care. Reassessment at the time of disposition demonstrates that the patient is in no acute distress. The patient is stable for discharge, counseling was provided and we discussed in great detail signs and symptoms that would prompt them to return to the Emergency Department. Medication, follow up and supportive care measures were reviewed and discussed. Voices understanding and is agreeable to plan of care. Denies any further questions or concerns at this time. Diagnostics: Therapeutics: Prescription: Impression: Plan: 1. You were evaluated today on an emergent basis. Your 2. You can alternate Tylenol and ibuprofen as needed for pain and fever management. 3. We encourage you to follow up with your primary care provider and/or recommended specialist in the next few days for re-evaluation and further care/management. 4. If your symptoms should worsen, new symptoms develop or any of the signs and symptoms we discussed should arise please return to the emergency room or call 911 (if needed). Definitive disposition and diagnosis as appropriate pending reevaluation and review of above. - Related Data Allergies Allergy/AdvReac Type Severity Reaction Status Date / Time amoxicillin Allergy Cannot Verified 01/30/20 12:22 Remember Home Meds: Home Meds . 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 Musculoskeletal History: Reports: None Neurological History: Reports: None Psychiatric History: Reports: None Endocrine/Metabolic History: Reports: None Insulin Pump Model and Coding Clerks Supervisor: None Hematologic History: Reports: None Immunologic History: Reports: None Oncologic (Cancer) History: Reports: None Dermatologic History: Reports: None - Infectious Disease History Infectious Disease History: Reports: None - Past Surgical History Head Surgeries/Procedures: Reports: None GI Surgical History: Reports: None Female Surgical History: Reports: None Social & Family History - Family History Family Medical History: No Pertinent Family History - Caffeine Use Caffeine Use: Reports: Coffee Departure - Discharge Information Referrals: PCP,Unobtain [Primary Care Provider] -
[2020-07-17] MEDS ORDERED: Ondansetron 4 MG/2 ML SDV IVPUSH ONE (16:18)
[2020-07-17] MEDS ORDERED: Sodium Chloride 0.9% 10 ML Syringe FLUSH PRN (16:18)
[2020-07-17] MEDS ORDERED: Sodium Chloride 0.9% 2.5 ML Syringe FLUSH PRN (16:18)
[2020-07-17] MEDS ORDERED: Morphine 4 MG/ML Syringe IVPUSH ONE (16:18)
[2020-07-17] MEDS ORDERED: Sodium Chloride 0.9% 10 ML SDV IV PRN (16:18)
[2020-07-17] MEDS ORDERED: Lactated Ringers 1,000 ML IV SCH (16:30)
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
[2020-07-17 17:02] LABS: BLOOD UREA NITROGEN,BUN 11 mg/dL (7.0-18.0); CHLORIDE,CL 108 mmol/L (98-107); GLUCOSE RANDOM 131 mg/dL (74-106); SODIUM,NA 143 mmol/L (136-145)
[2020-07-17] MEDS ORDERED: Iopamidol 755 MG/ML 500 ML Multipack Bottle IVPUSH ONE (17:10)
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
[2020-07-17] MEDS ORDERED: Acetaminophen/oxyCODONE 325-5 MG Tab PO ONE (20:32)
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
== END 2020-07-17 20:34 | disposition home or self-care (01) ==
LOC: MW.ED 15:44
DX: S30.1XXA Contusion of abdominal wall, initial encounter (principal); M79.602 Pain in left arm; R00.0 Tachycardia, unspecified; Z88.0 Allergy status to penicillin; V86.59XA Driver of other special all-terrain or other off-road motor vehicle injured in nontraffic accident, initial encounter
CPT/HCPCS: 36415; 70450; 71275; 72125; 73060; 73090; 74174; 80053; 83605; 84484; 84703; 85025; 85610; 85730; 86850; 86900; 86901; 93005; 96374; 96375; 99284; A9270; J2270; J2405; J7120; Q9967; 93010; 99285

== ENCOUNTER 2020-10-10 21:53 | Emergency (ER) | payer SELFPAY ==
[2020-10-10] MEDS ORDERED: Metoclopramide 10 MG/2 ML SDV IVPUSH ONE (22:14)
--- NOTE | 2020-10-10 22:17 | EDM.PDOC ---
ED HPI GENERAL MEDICAL PROBLEM - General Chief Complaint: Headache Stated Complaint: SORE THROAT, HEADACHE Time Seen by Provider: 10/10/20 22:13 Source of Information: Reports: Patient History Limitations: Reports: No Limitations - History of Present Illness INITIAL COMMENTS - FREE TEXT/NARRATIVE: Patient is a 25-year-old female who presents today for headache and throat pain. Patient she has had throat pain for the past 2 weeks was able to eat and drink and swallow without issue. Patient that she has recurrent migraines and noted she did not have any caffeine for the past 2 days. Patient otherwise denies any vision changes numbness weakness to extremities or any other complaints. - Related Data Allergies Allergy/AdvReac Type Severity Reaction Status Date / Time amoxicillin Allergy Cannot Verified 10/10/20 22:17 Remember Home Meds: Home Meds Ibuprofen 400 mg PO Q6H PRN #20 tablet 07/17/20 [Rx] Past Medical History - Past Health History Medical/Surgical History: Denies Medical/Surgical History HEENT History: Reports: None Cardiovascular History: Reports: None Respiratory History: Reports: None Gastrointestinal History: Reports: GERD Genitourinary History: Reports: None PROMOTIONAL MARKETING AGENT History: Reports: None Musculoskeletal History: Reports: None Neurological History: Reports: None Psychiatric History: Reports: None Endocrine/Metabolic History: Reports: None Insulin Pump Model and Email Campaign Specialist: None Hematologic History: Reports: None Immunologic History: Reports: None Oncologic (Cancer) History: Reports: None Dermatologic History: Reports: None - Infectious Disease History Infectious Disease History: Reports: None - Past Surgical History Head Surgeries/Procedures: Reports: None GI Surgical History: Reports: None Female Surgical History: Reports: None Social & Family History - Family History Family Medical History: No Pertinent Family History - Caffeine Use Caffeine Use: Reports: None ED ROS GENERAL - Review of Systems Review Of Systems: See Below Constitutional: Reports: No Symptoms HEENT: Reports: Throat Pain Respiratory: Reports: No Symptoms Cardiovascular: Reports: No Symptoms Endocrine: Reports: No Symptoms GI/Abdominal: Reports: No Symptoms : Reports: No Symptoms Musculoskeletal: Reports: No Symptoms Skin: Reports: No Symptoms Neurological: Reports: Headache Psychiatric: Reports: No Symptoms Hematologic/Lymphatic: Reports: No Symptoms Immunologic: Reports: No Symptoms - Physical Exam Exam: See Below Exam Limited By: No Limitations General Appearance: Alert, WD/WN, No Apparent Distress Eye Exam: Bilateral Eye: EOMI, PERRL Throat/Mouth: No Airway Compromise Head Exam: Atraumatic, Normocephalic Neck: Normal Inspection, Supple Respiratory/Chest: No Respiratory Distress, Lungs Clear, Normal Breath Sounds Cardiovascular: Normal Peripheral Pulses, Regular Rate, Rhythm GI/Abdominal: Normal Bowel Sounds, Soft, Non-Tender Neuro Exam (Abbreviated): Alert, Oriented, CN II-XII Intact, Normal Cognition, Normal Gait Extremities: Normal Inspection Course - Vital Signs Last Recorded V/S: Last Vital Signs Temp 97.9 F 10/10/20 22:11 Pulse 76 10/10/20 22:11 Resp 16 10/10/20 22:11 BP 135/61 10/10/20 22:11 Pulse Ox 100 10/10/20 22:11 - Orders/Labs/Meds Meds: Medications Discontinued Medications Generic Name Dose Route Start Last Admin Trade Name Freq PRN Reason Stop Dose Admin Metoclopramide HCl 10 mg 10/10/20 22:14 10/10/20 22:25 Metoclopramide 10 Mg/2 Ml Sdv IVPUSH 10/10/20 22:15 10 mg ONETIME ONE Administration Departure - Departure Time of Disposition: 00:00 Disposition: Eloped 07 Clinical Impression: General medical exam - Discharge Information *PRESCRIPTION DRUG MONITORING PROGRAM REVIEWED*: Not Applicable *COPY OF PRESCRIPTION DRUG MONITORING REPORT IN PATIENT MAYDA: Not Applicable Referrals: PCP,None [Primary Care Provider] - Forms: ED Department Discharge Sepsis Event Note (ED) - Evaluation Sepsis Screening Result: No Definite Risk - Assessment/Plan Plan: Patient is a 25-year-old female who presents today for throat pain and headaches. Will obtain rapid strep provide Reglan for headache control and reassess.
== END 2020-10-10 22:54 | disposition left against medical advice (07) ==
LOC: MW.ED 21:53
DX: Z00.00 Encounter for general adult medical examination without abnormal findings (principal); Z88.0 Allergy status to penicillin
CPT/HCPCS: 96374; 99283; J2765; 99282

== ENCOUNTER 2020-12-30 13:31 | Emergency (ER) | payer SELFPAY ==
--- NOTE | 2020-12-30 14:04 | EDM.PDOC ---
ED HPI GENERAL MEDICAL PROBLEM - General Chief Complaint: ENT Problem Stated Complaint: RIGHT EAR PAINFUL Time Seen by Provider: 12/30/20 13:36 Source of Information: Reports: Patient History Limitations: Reports: No Limitations - History of Present Illness INITIAL COMMENTS - FREE TEXT/NARRATIVE: HISTORY AND PHYSICAL: History of present illness: Patient is a 25-year-old female who presents emergency room today with concern of right ear pain that began yesterday. Patient states that she has had cerumen impaction in the past and thought that this is what was causing her ear discomfort so has been using [id number] Debrox drops and earwax removal kits. Patient states that she did get some earwax out last night but began having worsening pain today so came to the emergency room for further evaluation. Patient denies any trauma or injury or any other associative symptoms. Patient denies any health history. Patient denies fever, chills, chest pain, shortness of breath, or cough. Denies headache, neck stiff ness, change in vision, syncope, or near syncope. Denies nausea, vomiting, abdominal pain, diarrhea, constipation, or dysuria. Has not noted any blood in urine or stool. Patient has been eating and drinking appropriately. Review of systems: As per history of present illness and below otherwise all systems reviewed and negative. Past medical history: As per history of present illness and as reviewed below otherwise noncontributory. Surgical history: As per history of present illness and as reviewed below otherwise noncontributory. Social history: See social history for further information Family history: As per history of present illness and as reviewed below otherwise noncontributory. Physical exam: General: Patient is alert, oriented, and in no acute distress. Patient sitting comfortably on exam table. Vitals stable and reviewed by me. HEENT: Atraumatic, normocephalic, pupils equal and reactive bilaterally, negative for conjunctival pallor or scleral icterus, mucous membranes moist, TMs normal bilaterally, patient does have pain with palpation of the right sided tragus and pain with movement of the right auricle with out mastoid tenderness, mild amount of edema of the right EAC, Throat clear, neck supple, nontender, trachea midline. No drooling or trismus noted. No meningeal signs. No hot potato voice noted. Lungs: Clear to auscultation, breath sounds equal bilaterally, chest nontender. Heart: S1S2, regular rate and rhythm without overt murmur Abdomen: Soft, nondistended, nontender. Negative for masses or hepatospl enomegaly. Negative for costovertebral tenderness. Pelvis: Stable nontender. Genitourinary: Deferred. Rectal: Deferred. Skin: Intact, warm, dry. No lesions or rashes noted. Extremities: Atraumatic, negative for cords or calf pain. Neurovascular unremarkable. Neuro: Awake, alert, oriented. Cranial nerves II through XII unremarkable. Cerebellum unremarkable. Motor and sensory unremarkable throughout. Exam nonfocal. Notes: Sinus symptoms that were prompt return to the ED thoroughly discussed with patient. Discussed importance for follow-up with a primary care provider. Voices understanding and is agreeable to plan of care. Denies any further questions or concerns at this time. Diagnostics: None Therapeutics: None Prescription: Cortisporin otic Impression: Otitis externa, right Plan: 1. Apply medication to affected ear as prescribed. You can alternate ibuprofen and Tylenol as directed for pain and discomfort. 2. Follow-up with a primary care provider as discussed. Return to the ED as needed and as discussed. Definitive disposition and diagnosis as appropriate pending reevaluation and review of above. Right Ear Pain Score (Numeric/FACES): 9 - Related Data Allergies Allergy/AdvReac Type Severity Reaction Status Date / Time amoxicillin Allergy Cannot Verified 12/30/20 13:50 Remember Home Meds: Home Meds Hydrocort/Neomycin/Polymyxin B [Gldeiboq-Wlympsqlt-XF Otic Susp] 10 ml EARRT TID 7 Days #1 bottle 12/30/20 [Rx] Past Medical History - Past Health History Medical/Surgical History: Denies Medical/Surgical History HEENT History: Reports: None Cardiovascular History: Reports: None Respiratory History: Reports: None Gastrointestinal History: Reports: GERD Genitourinary History: Reports: None MAINTENANCE SHOP TECHNICIAN History: Reports: None Musculoskeletal History: Reports: None Neurological History: Reports: None Psychiatric History: Reports: None Endocrine/Metabolic History: Reports: None Insulin Pump Model and Tool Keeper: None Hematologic History: Reports: None Immunologic History: Reports: None Oncologic (Cancer) History: Reports: None Dermatologic History: Reports: None - Infectious Disease History Infectious Disease History: Reports: None - Past Surgical History Head Surgeries/Procedures: Reports: None GI Surgical History: Reports: None Female Surgical History: Reports: None Social & Family History - Family History Family Medical History: No Pertinent Family History - Caffeine Use Caffeine Use: Reports: None - Recreational Drug Use Recreational Drug Use: No ED ROS GENERAL - Review of Systems Review Of Systems: Comprehensive ROS is negative, except as noted in HPI. ED EXAM, GENERAL - Physical Exam Exam: See Below (See dictation) Course - Vital Signs Last Recorded V/S: Last Vital Signs Temp 97.4 F 12/30/20 13:43 Pulse 92 12/30/20 13:43 Resp 20 12/30/20 13:43 BP 133/74 12/30/20 13:43 Pulse Ox 97 12/30/20 13:43 Departure - Departure Time of Disposition: 14:03 Disposition: Home, Self-Care 01 Clinical Impression: Otitis externa Qualifiers: Otitis externa type: unspecified type Chronicity: acute Laterality: right Qualified Code(s): H60.501 - Unspecified acute noninfective otitis externa, right ear - Discharge Information Prescriptions: Hydrocort/Neomycin/Polymyxin B [Uekttzqg-Dslziixks-ZY Otic Susp] 10 ml EARRT TID 7 Days #1 bottle Referrals: PCP,None [Primary Care Provider] - Forms: ED Department Discharge Additional Instructions: The following information is given to patients seen in the emergency department who are being discharged to home. This information is to outline your options for follow-up care. We provide all patients seen in our emergency department with a follow-up referral. The need for follow-up, as well as the timing and circumstances, are variable depending upon the specifics of your emergency department visit. If you don't have a primary care physician on staff, we will provide you with a referral. We always advise you to contact your personal physician following an emergency department visit to inform them of the circumstance of the visit and for follow-up with them and/or the need for any referrals to a consulting specialist. The emergency department will also refer you to a specialist when appropriate. This referral assures that you have the opportunity for follow-up care with a specialist. All of these measure are taken in an effort to provide you with optimal care, which includes your follow-up. Under all circumstances we always encourage you to contact your private physician who remains a resource for coordinating your care. When calling for follow-up care, please make the office aware that this follow-up is from your recent emergency room visit. If for any reason you are refused follow-up, please contact the [facility] Emergency Department at and asked to speak to the emergency department charge nurse. [facility] [address] [place] [address] [address] 1. Apply medication to affected ear as prescribed. You can alternate ibuprofen and Tylenol as directed for pain and discomfort. 2. Follow-up with a primary care provider as discussed. Return to the ED as needed and as discussed. Sepsis Event Note (ED) - Evaluation Sepsis Screening Result: No Definite Risk - Focused Exam Vital Signs: Vital Signs Temp Pulse Resp BP Pulse Ox 12/30/20 13:43 97.4 F 92 20 133/74 97
== END 2020-12-30 14:16 | disposition home or self-care (01) ==
LOC: MW.ED 13:31
DX: H60.501 Unspecified acute noninfective otitis externa, right ear (principal); Z88.0 Allergy status to penicillin
CPT/HCPCS: 99282

== ENCOUNTER 2021-02-01 16:13 | Emergency (ER) | payer SELFPAY ==
--- NOTE | 2021-02-01 18:33 | EDM.PDOC ---
ED HPI GENERAL MEDICAL PROBLEM - General Chief Complaint: Skin Complaint Stated Complaint: PURPLE LUMP ON BREAST Time Seen by Provider: 02/01/21 17:23 Source of Information: Reports: Patient History Limitations: Reports: No Limitations - History of Present Illness INITIAL COMMENTS - FREE TEXT/NARRATIVE: HISTORY AND PHYSICAL: History of present illness: Patient is a 25-year-old female presents emergency room today with concern of a lump that she noted to her left breast a few hours prior to arrival to the emergency room that is mildly tender to palpation. Patient states in general, she has areas of "bumps "all over her left breast and states that she does not have this anywhere else on her body. Patient states that she has been having issues with this for years and states that generally she gets some painful bumps that go away. Patient states that she had 1 of these bumps that was getting bigger and more painful and tender to the touch so she came to the emergency room for further evaluation. Patient states that she has never been and is not breast-feeding or has any nipple drainage. Denies any other symptoms or concerns. Patient denies fever, chills, chest pain, shortness of breath, or cough. Denies headache, neck stiff ness, change in vision, syncope, or near syncope. Denies nausea, vomiting, abdominal pain, diarrhea, constipation, or dysuria. Has not noted any blood in urine or stool. Patient has been eating and drinking appropriately. Review of systems: As per history of present illness and below otherwise all systems reviewed and negative. Past medical history: As per history of present illness and as reviewed below otherwise noncontributory. Surgical history: As per history of present illness and as reviewed below otherwise noncontributory. Social history: See social history for further information Family history: As per history of present illness and as reviewed below otherwise noncontributory. Physical exam: General: Patient is alert, oriented, and in no acute distress. Patient sitting comfortably on exam table. Vitals stable and reviewed by me. HEENT: Atraumatic, normocephalic, pupils equal and reactive bilaterally, negative for conjunctival pallor or scleral icterus, mucous membranes moist, throat clear, neck supple, nontender, trachea midline. No drooling or trismus noted. No meningeal signs. No hot potato voice noted. Lungs: Clear to auscultation, breath sounds equal bilaterally, chest nontender. Breast: There are multiple areas of folliculitis noted to the lateral left breast. One of these areas larger than the other with mild surrounding cellulitis. Bedside US shows small amount of fluid collection. Heart: S1S2, regular rate and rhythm without overt murmur Abdomen: Soft, nondistended, nontender. Negative for masses or hepatosplenomegaly. Negative for costovertebral tenderness. Pelvis: Stable nontender. Genitourinary: Deferred. Rectal: Deferred. Skin: Intact, warm, dry. No lesions or rashes noted. Extremities: Atraumatic, negative for cords or calf pain. Neurovascular unremarkable. Neuro: Awake, alert, oriented. Cranial nerves II through XII unremarkable. Cerebellum unremarkable. Motor and sensory unremarkable throughout. Exam nonfocal. Notes: Dr. Samayoa verbally involved in patient care. Patient is a 25-year-old female who presents emergency room today with concern of a lump that she noted to her outer left breast this afternoon. Upon arrival to the ED, patient is vitally stable and well-appearing on exam. Examination of patient's breast does show that she has multiple areas of folliculitis of her left breast and one particular area, she has an erythematous lump concerning for possible abscess with mild surrounding cellulitis. Patient has never been and not currently breast-feeding. Bedside ultrasound does show a small amount of fluid under the area of concern/folliculitis. Incision and drainage performed. See procedure note below. Upon reevaluation of patient, remains vitally stable tolerated procedure well. Strict return precautions thoroughly discussed with patient. Discussed importance for follow-up with a women's health care provider. Voices understanding and is agreeable to plan of care. Denies any further questions or concerns at this time. Diagnostics: Bedside Ultrasound Therapeutics: Incision and drainage, lidocaine Prescription: Bactrim DS Impression: Subcutaneous abscess, left breast secondary to folliculitis Plan: 1. Take medication as prescribed. You can alternate ibuprofen and tylenol as directed by pain and discomfort. 2. Follow-up with a women's health care provider as discussed. Return to the ED as needed and as discussed. Definitive disposition and diagnosis as appropriate pending reevaluation and review of above. Left Breast Pain Score (Numeric/FACES): 2 - Related Data Allergies Allergy/AdvReac Type Severity Reaction Status Date / Time amoxicillin Allergy Cannot Verified 02/01/21 17:18 Remember Home Meds: Home Meds Sulfamethoxazole/Trimethoprim [Bactrim Ds Tablet] 1 each PO BID 10 Days #20 tablet 02/01/21 [Rx] Past Medical History - Past Health History Medical/Surgical History: Denies Medical/Surgical History HEENT History: Reports: None Cardiovascular History: Reports: None Respiratory History: Reports: None Gastrointestinal History: Reports: GERD Genitourinary History: Reports: None IRRIGATION SERVICE TECHNICIAN History: Reports: None Musculoskeletal History: Reports: None Neurological History: Reports: None Psychiatric History: Reports: None Endocrine/Metabolic History: Reports: None Insulin Pump Model and Nutrition Specialist: None Hematologic History: Reports: None Immunologic History: Reports: None Oncologic (Cancer) History: Reports: None Dermatologic History: Reports: None - Infectious Disease History Infectious Disease History: Reports: None - Past Surgical History Head Surgeries/Procedures: Reports: None GI Surgical History: Reports: None Female Surgical History: Reports: None Social & Family History - Family History Family Medical History: No Pertinent Family History - Tobacco Use Tobacco Use Status *Q: Never Tobacco User - Caffeine Use Caffeine Use: Reports: None - Recreational Drug Use Recreational Drug Use: No ED ROS GENERAL - Review of Systems Review Of Systems: Comprehensive ROS is negative, except as noted in HPI. ED EXAM, SKIN/RASH Exam: See Below (see dictation) ED SKIN PROCEDURES - I&D Site: Left sided breast Skin Prep: Chlorhexidine (Hibiciens) Local Anesthesia: Lidocaine: 1% Plain Local Anesthetic Volume: 3cc Area Incised With: 11 Blade Drainage: Purulent, Bloody, Small Amount Probed to Break Up Loculations: Yes Packed With: None Sterile Dressinx4(s) Complications: No Course - Vital Signs Last Recorded V/S: Last Vital Signs Temp 96.2 F L 02/01/21 18:40 Pulse 87 02/01/21 18:40 Resp 16 02/01/21 18:40 BP 138/86 02/01/21 17:15 Pulse Ox 97 02/01/21 18:40 - Orders/Labs/Meds Meds: Medications Discontinued Medications Generic Name Dose Route Start Last Admin Trade Name Freq PRN Reason Stop Dose Admin Lidocaine HCl 5 ml 02/01/21 17:55 02/01/21 18:07 Lidocaine 1% 5 Ml Sdv INJECT 02/01/21 17:56 5 ml ONETIME ONE Administration Departure - Departure Time of Disposition: 18:31 Disposition: Home, Self-Care 01 Clinical Impression: Subcutaneous abscess Qualifiers: Site of cutaneous abscess: trunk Site of cutaneous abscess of trunk: chest wall Qualified Code(s): L02.213 - Cutaneous abscess of chest wall - Discharge Information Prescriptions: Sulfamethoxazole/Trimethoprim [Bactrim Ds Tablet] 1 each PO BID 10 Days #20 tablet Instructions: Skin Abscess, [id number] Referrals: PCP,None [Primary Care Provider] - Forms: ED Department Discharge Additional Instructions: The following information is given to patients seen in the emergency department who are being discharged to home. This information is to outline your options for follow-up care. We provide all patients seen in our emergency department with a follow-up referral. The need for follow-up, as well as the timing and circumstances, are variable depending upon the specifics of your emergency department visit. If you don't have a primary care physician on staff, we will provide you with a referral. We always advise you to contact your personal physician following an emergency department visit to inform them of the circumstance of the visit and for follow-up with them and/or the need for any referrals to a consulting specialist. The emergency department will also refer you to a specialist when appropriate. This referral assures that you have the opportunity for follow-up care with a specialist. All of these measure are taken in an effort to provide you with optimal care, which includes your follow-up. Under all circumstances we always encourage you to contact your private physician who remains a resource for coordinating your care. When calling for follow-up care, please make the office aware that this follow-up is from your recent emergency room visit. If for any reason you are refused follow-up, please contact the [facility] Emergency Department at and asked to speak to the emergency department charge nurse. [facility] [place] [address] [address] [address] [address] [facility] [address] [place] [id number] 1. Take medication as prescribed. You can alternate ibuprofen and tylenol as directed by pain and discomfort. 2. Follow-up with a women's health care provider as discussed. Return to the ED as needed and as discussed. Sepsis Event Note (ED) - Focused Exam Vital Signs: Vital Signs Temp Pulse Resp BP Pulse Ox 02/01/21 18:40 96.2 F L 87 16 97 02/01/21 17:15 97.8 F 90 18 138/86 97
== END 2021-02-01 18:42 | disposition home or self-care (01) ==
LOC: MW.ED 16:13
DX: L02.213 Cutaneous abscess of chest wall (principal); N61.1 Abscess of the breast and nipple; L73.9 Follicular disorder, unspecified; Z88.0 Allergy status to penicillin
CPT/HCPCS: 10060; 99283-25

== ENCOUNTER 2021-07-18 15:22 | Emergency (ER) | payer SELFPAY ==
[2021-07-18] MEDS ORDERED: Benzocaine 20% Topical Spray UD MUCMEM ONE (15:36)
[2021-07-18] MEDS ORDERED: Lidocaine 2% Viscous Solution 15 ML UD PO ONE (15:36)
== END 2021-07-18 16:02 | disposition home or self-care (01) ==
LOC: MW.ED 15:22
DX: K04.7 Periapical abscess without sinus (principal); K21.9 Gastro-esophageal reflux disease without esophagitis; Z88.5 Allergy status to narcotic agent
CPT/HCPCS: 99282; A9270

== ENCOUNTER 2022-03-03 17:31 | Emergency (ER) | payer SELFPAY ==
[2022-03-03 21:28] LABS: CARBON DIOXIDE,CO2 24.9 mmol/L (21.0-32.0)
[2022-03-04 00:01] LABS: C. TRACHOMATIS BY PCR NOT DETECTED; N. GONORRHOEAE BY PCR NOT DETECTED
== END 2022-03-03 22:22 | disposition home or self-care (01) ==
LOC: MW.ED 17:31
DX: O20.9 Hemorrhage in early pregnancy, unspecified (principal); O23.591 Infection of other part of genital tract in pregnancy, first trimester; N76.0 Acute vaginitis; Z3A.11 11 weeks gestation of pregnancy; Z88.0 Allergy status to penicillin
CPT/HCPCS: 36415; 76817; 76817-26; 80048; 81001; 84702; 85025; 86900; 86901; 87480; 87491; 87510; 87591; 87660; 99283; 99284

== ENCOUNTER 2022-08-26 20:00 | Inpatient (IN) | payer MEDICAID ==
[2022-08-26] MEDS ORDERED: Misoprostol 200 MCG Tab PO PRN (20:55)
[2022-08-26] MEDS ORDERED: Sodium Chloride 0.9% 2.5 ML Syringe FLUSH PRN (20:55)
[2022-08-26] MEDS ORDERED: Lidocaine 1% 50 ML MDV INJECT PRN (20:55)
[2022-08-26] MEDS ORDERED: Butorphanol 1 MG/ML SDV IVPUSH PRN (20:55)
[2022-08-26] MEDS ORDERED: Ondansetron 4 MG/2 ML SDV IVPUSH PRN (20:55)
[2022-08-26] MEDS ORDERED: Sodium Chloride 0.9% 10 ML Syringe FLUSH PRN (20:55)
[2022-08-26] MEDS ORDERED: Sodium Chloride 0.9% 20 ML SDV IV PRN (20:55)
[2022-08-26] MEDS ORDERED: Tranexamic Acid 1,000 MG in Sodium Chloride 0.9% 100 ML IV PRN (20:55)
[2022-08-26] MEDS ORDERED: Water For Irrigation,Sterile 1,000 ML Container IRR PRN (20:55)
[2022-08-26] MEDS ORDERED: Methylergonovine 0.2 MG/1 ML Amp IM PRN (20:55)
[2022-08-26] MEDS ORDERED: Carboprost Tromethamine 250 MCG/1 ML Amp IM PRN (20:55)
[2022-08-26] MEDS ORDERED: Oxytocin/0.9 % Sodium Chloride 30 UNIT/500 ML BAG IV SCH (21:00)
[2022-08-26] MEDS ORDERED: Vancomycin 1.5 GM in Sodium Chloride 0.9% 500 ML IV SCH (22:00)
[2022-08-26] MEDS ORDERED: VANCOMYCIN 1.5 GM/300 ML ONE (22:20)
[2022-08-26] MEDS: Lactated Ringers 1,000 ML IV SCH (22:53)
[2022-08-27] MEDS ORDERED: Ropivacaine/PF 400 MG/200 ML PCA ONE (01:05)
[2022-08-27] MEDS ORDERED: Dexmedetomidine 200 MCG/2 ML SDV ONE (01:05)
[2022-08-27] MEDS ORDERED: Phenylephrine HCl 0.5 MG/5 ML AMP IVPUSH PRN (01:31)
[2022-08-27] MEDS ORDERED: ePHEDrine 50 MG/ML SDV IVPUSH PRN ×2 (01:31)
[2022-08-27] MEDS ORDERED: Ropivacaine HCl/PF 400 MG in Premix Bag 1 BAG EPIDUR SCH (01:45)
[2022-08-27] MEDS: Lactated Ringers 1,000 ML IV SCH ×2 (02:04→08:08)
[2022-08-27] MEDS ORDERED: Terbutaline 1 MG/ML SDV SUBCUT PRN (02:41)
[2022-08-27] MEDS: Oxytocin/0.9 % Sodium Chloride 30 UNIT/500 ML BAG IV SCH ×2 (03:06→08:56)
[2022-08-27] MEDS ORDERED: Vancomycin 2 GM in Sodium Chloride 0.9% 500 ML IV SCH (08:00)
[2022-08-27] MEDS ORDERED: Acetaminophen 500 MG Tab PO ONE (08:53)
[2022-08-27] MEDS ORDERED: Lanolin 100% Cream 7 GM Tube TOP PRN (15:07)
[2022-08-27] MEDS ORDERED: Benzocaine/Menthol 20%-0.5% Spray 78 GM Cannister TOP PRN (15:07)
[2022-08-27] MEDS ORDERED: oxyCODONE 5 MG Tab PO PRN (15:07)
[2022-08-27] MEDS ORDERED: Ibuprofen 800 MG Tab PO PRN (15:07)
[2022-08-27] MEDS ORDERED: Ibuprofen 400 MG Tab PO PRN (15:07)
[2022-08-27] MEDS ORDERED: Acetaminophen 500 MG Tab PO PRN (15:07)
[2022-08-27] MEDS ORDERED: Bisacodyl 10 MG Supp RECTAL PRN (15:07)
[2022-08-27] MEDS ORDERED: Witch Hazel Medicated Pads 40/Jar TOP PRN (15:07)
[2022-08-27] MEDS: Docusate Sodium 100 MG Cap PO PRN (17:00)
[2022-08-27] MEDS: Acetaminophen 500 MG Tab PO PRN (17:01)
[2022-08-27] MEDS ORDERED: VANCOmycin 2 GM/400 ML 2 GM in Premix Bag 1 BAG IV ONE (21:00)
[2022-08-28] MEDS: Docusate Sodium 100 MG Cap PO PRN (13:15)
[2022-08-29] MEDS: Docusate Sodium 100 MG Cap PO PRN (08:50)
[2022-08-29] MEDS: Acetaminophen 500 MG Tab PO PRN (19:26)
== END 2022-08-29 19:30 | disposition home or self-care (01) | DRG 806 ==
LOC: MW.OB 20:00 → MW.OBCHECK 20:00 → MW.OB 20:56 → MW.OBCHECK 20:56 → OBSVTOIN 08-27 14:40 → MW.OB 08-27 17:43
PROVIDERS: ADMIT Obstetrics & Gynecology; ATTEND Obstetrics & Gynecology
PROC: 10E0XZZ Delivery of Products of Conception, External Approach (ICD-10-PCS; principal; 2022-08-27)
PROC: 3E0R3BZ Introduction of Anesthetic Agent into Spinal Canal, Percutaneous Approach (ICD-10-PCS; 2022-08-27)
PROC: 00HU33Z Insertion of Infusion Device into Spinal Canal, Percutaneous Approach (ICD-10-PCS; 2022-08-27)
DX: O42.113 Preterm premature rupture of membranes, onset of labor more than 24 hours following rupture, third trimester (principal); O98.32 Other infections with a predominantly sexual mode of transmission complicating childbirth; Z37.0 Single live birth; A60.09 Herpesviral infection of other urogenital tract; O99.62 Diseases of the digestive system complicating childbirth; K21.9 Gastro-esophageal reflux disease without esophagitis; O99.214 Obesity complicating childbirth; Z3A.35 35 weeks gestation of pregnancy; Z3A.36 36 weeks gestation of pregnancy
CPT/HCPCS: 01967; 36415; 51702; 59025; 59409; 80305-QW; 82803; 84112; 85014; 85018; 85027; 86592; 86850; 86900; 86901; 87653; A9270-GY; J2370; J2405; J2590; J2795; J3370; J3490; J7040; J7120

== ENCOUNTER 2022-09-26 07:34 | Emergency (ER) | payer BC, MEDICAID ==
[2022-09-26 09:31] LABS: CANDIDA DNA PROBE NEGATIVE (NEGATIVE); GARDNERELLA DNA PROBE POSITIVE (NEGATIVE); TRICHOMONAS DNA PROBE NEGATIVE (NEGATIVE)
[2022-09-26 10:11] LABS: C. TRACHOMATIS BY PCR NOT DETECTED; N. GONORRHOEAE BY PCR NOT DETECTED
== END 2022-09-26 09:14 | disposition home or self-care (01) ==
LOC: MW.ED 07:34
DX: R10.2 Pelvic and perineal pain (principal); Z88.0 Allergy status to penicillin; Z91.011 Allergy to milk products
CPT/HCPCS: 87480; 87491; 87510; 87591; 87660; 99284

== ENCOUNTER 2023-03-08 18:59 | Emergency (ER) | payer MEDICAID ==
[2023-03-08] MEDS ORDERED: Sodium Chloride 0.9% 1,000 ML IV ONE (20:04)
[2023-03-08] MEDS ORDERED: Ketorolac 30 MG/ML SDV IVPUSH ONE (20:08)
[2023-03-08] MEDS ORDERED: Ondansetron 4 MG/2 ML SDV IVPUSH ONE (20:08)
[2023-03-08] MEDS ORDERED: Alum Hydro/Mag Hydro/Simeth XS 15 ML, Metoclopramide 5 MG, Lidocaine 2% 5 ML PO ONE ×3 (20:09)
[2023-03-08 20:37] LABS: BASOPHILS ABSOLUTE AUTO 0.03 K/uL (0.00-0.20); BASOPHILS PERCENT AUTO 0.4 % (0.0-1.0); EOSINOPHILS ABSOLUTE AUTO 0.19 K/uL (0.00-0.45); EOSINOPHILS PERCENT AUTO 2.4 % (0.0-6.0); HEMATOCRIT 38.8 % (37.0-47.0); IMMATURE GRAN ABSOLUTE AUTO 0.01 K/uL (0.00-0.05); IMMATURE GRAN PERCENT AUTO 0.1 % (0.0-0.4); LYMPHOCYTES ABSOLUTE AUTO 2.41 K/uL (1.00-4.80); MEAN CORPUSCULAR HEMOGLOBIN 32.6 pg (28.0-32.0); MEAN CORPUSCULAR HGB CONC 36.1 g/dL (32.0-36.0); MEAN CORPUSCULAR VOLUME 90.2 fL (83.0-99.0); MEAN PLATELET VOLUME 9.9 fL (9.4-12.3); MONOCYTES ABSOLUTE AUTO 0.62 K/uL (0.00-0.80); NEUTROPHILS ABSOLUTE AUTO 4.51 K/uL (1.80-7.70); NEUTROPHILS PERCENT AUTO 58.1 % (41.0-71.0); PLATELET COUNT,PLT 284 K/uL (150-400); WHITE BLOOD CELL COUNT,WBC 7.77 K/uL (3.9-11.3)
[2023-03-08 20:52] LABS: CORONAVIRUS COVID-19 NAA NEGATIVE (NEGATIVE); INFLUENZA A NAA NEGATIVE (NEGATIVE); INFLUENZA B NAA NEGATIVE (NEGATIVE)
[2023-03-08 20:57] LABS: ALBUMIN 3.9 g/dL (3.4-5.0); BILIRUBIN TOTAL 0.7 mg/dL (0.2-1.0); CALCIUM 9.1 mg/dL (8.5-10.1); CARBON DIOXIDE,CO2 27.7 mmol/L (21.0-32.0); EST CRCL DRUG DOSING (CG) 82.9 mL/min; POTASSIUM,K 3.7 mmol/L (3.5-5.1)
[2023-03-08] MEDS ORDERED: Cyclobenzaprine 10 MG Tab PO ONE (21:54)
== END 2023-03-08 22:30 | disposition home or self-care (01) ==
LOC: MW.ED 18:59
DX: S39.012A Strain of muscle, fascia and tendon of lower back, initial encounter (principal); B34.9 Viral infection, unspecified; Z20.822 Contact with and (suspected) exposure to COVID-19; Z88.0 Allergy status to penicillin; Z91.011 Allergy to milk products; X58.XXXA Exposure to other specified factors, initial encounter
CPT/HCPCS: 0240U; 36415; 80053; 83690; 85025; 96361; 96374; 96375; 99284; A9270; J1885; J2405; J7030

== ENCOUNTER 2023-03-24 15:18 | Emergency (ER) | payer MEDICAID ==
[2023-03-24] MEDS ORDERED: Lidocaine 1% 5 ML VIAL INJECT STA (16:23)
[2023-03-24] MEDS ORDERED: Sulfamethoxazole/Trimethoprim 800-160 MG Tab PO STA (16:24)
== END 2023-03-24 18:04 | disposition home or self-care (01) ==
LOC: MW.ED 15:18
DX: L02.31 Cutaneous abscess of buttock (principal); Z88.0 Allergy status to penicillin; Z91.011 Allergy to milk products; Z79.899 Other long term (current) drug therapy
CPT/HCPCS: 10060; 99282; A9270; 99283; J3490

== ENCOUNTER 2024-02-04 09:06 | Emergency (ER) | payer SELFPAY | END 2024-02-04 11:26 | disposition home or self-care (01) | LOC: MW.ED 09:06 | DX: F10.10 Alcohol abuse, uncomplicated (principal); Z13.30 Encounter for screening examination for mental health and behavioral disorders, unspecified; Z88.0 Allergy status to penicillin; Z91.011 Allergy to milk products; Z79.899 Other long term (current) drug therapy | CPT/HCPCS: 99284 ==